=== PATIENT | female | born 1965 | race Caucasian/White ===

== ENCOUNTER 2023-07-18 08:18 | Day surgery (SDC) | payer MEDICAID ==
[~2023-07-18] VITALS: Ht 154.9 cm; Wt 70.8 kg
[2023-07-18 09:35] LABS: HCG,QUAL RESULT NEGATIVE (NEGATIVE)
[2023-07-18] MEDS ORDERED: fentaNYL CITRATE/PF 100 MCG/2 ML AMP ONE (10:04)
[2023-07-18] MEDS ORDERED: MIDAZOLAM HCL 5 MG/5 ML VIAL ONE (10:05)
[2023-07-18 13:21] VITALS: O2SAT 100
[2023-07-18 14:11] VITALS: BP_SYST 130; PULSE 58; RESP 17
== END 2023-07-18 11:28 | disposition home or self-care (01) ==
LOC: SDS 08:18 → SMU 08:20 → SDS 11:28
PROVIDERS: ATTEND Internal Medicine
DX: R10.12 Left upper quadrant pain (principal); K29.50 Unspecified chronic gastritis without bleeding; B96.81 Helicobacter pylori [H. pylori] as the cause of diseases classified elsewhere; Z79.899 Other long term (current) drug therapy
CPT/HCPCS: 43239; 87081; 84703; 36415; 88305; 88312; 88313; G0378; J2250; J3010